=== PATIENT | male | born 1985 | race Caucasian/White ===

== ENCOUNTER 2019-03-17 17:41 | Emergency (ER) | payer SELFPAY ==
--- NOTE | 2019-03-17 17:58 | Event Note ---
ED Screening Note Date of service: 03/17/19 Time: 17:54 ED Screening Note: 33 y o male presents with No PMH to ED with gross hematuria and elevated BP This initial assessment/diagnostic orders/clinical plan/treatment(s) is/are subject to change based on patients health status, clinical progression and re- assessment by fellow clinical providers in the ED. Further treatment and workup at subsequent clinical providers discretion. Patient/guardian urged not to elope from the ED as their condition may be serious if not clinically assessed and managed. Initial orders include: HTn Emerg labs ordered IVF Clonidine
[2019-03-17 18:30] LABS: Basophils # (Auto) 0.1 K/mm3 (0.0-0.1); Eosinophils # (Auto) 0.3 K/mm3 (0.0-0.4); Eosinophils % (Auto) 3.7 % (0.0-4.3); Monocytes # (Auto) 0.6 K/mm3 (0.0-0.8)
[2019-03-17 18:42] LABS: Basophils % (Auto) 1.9 % (0.0-1.8); Hematocrit 47.8 % (35.5-45.6); Hemoglobin 16.7 gm/dl (11.8-15.2); Lymphocytes # (Auto) 1.1 K/mm3 (1.2-5.4); Lymphocytes % (Auto) 12.4 % (13.4-35.0); Mean Corpuscular HGB Conc 35 % (32-34); Mean Corpuscular Volume 87 fl (84-94); Red Cell Distribution Width 13.3 % (13.2-15.2)
[2019-03-17 18:44] LABS: Bilirubin,Urine NEG (Negative); Blood,Urine LG (Negative); Color,Urine Red (Yellow); Urobilinogen,Urine < 2.0 mg/dL (<2.0)
[2019-03-17 18:45] LABS: Platelet Count 220 K/mm3 (140-440); Red Blood Count 5.49 M/mm3 (3.65-5.03)
[2019-03-17 18:46] LABS: Mean Platelet Volume 7.7 fl (6-12)
[2019-03-17 18:52] LABS: RBC,Urine > 182.0 /HPF (0.0-6.0)
[2019-03-17 18:54] LABS: Alanine Aminotransferase 164 units/L (7-56); Albumin 4.9 g/dL (3.9-5); BUN/Creatinine Ratio 16; Blood Urea Nitrogen 11 mg/dL (9-20); Calcium 9.9 mg/dL (8.4-10.2); Hemolysis Index 7
--- NOTE | 2019-03-17 19:30 | Emergency Department Report ---
ED Male HPI - General Chief complaint: Urogenital-Male Stated complaint: URINATING BLOOD Time Seen by Provider: 03/17/19 17:54 Source: patient Mode of arrival: Ambulatory Limitations: No Limitations - History of Present Illness Initial comments: 33-year-old male, presents to ED with a past medical history of hypertension, complaining of suprapubic discomfort, gross hematuria, for the past 2 days. Symptoms are rated as moderate in severity. But he denies any fever, chills or night sweats. He has been out of his blood pressure medication due to lack of insurance and has not been able to see a doctor. - Related Data Previous Rx's Medication Instructions Recorded Last Taken Type Sulfamethoxazole/Trimethoprim 1 each PO BID #14 tablet 03/17/19 Unknown Rx [Bactrim DS TAB] amLODIPine [Norvasc] 10 mg PO DAILY 3 Days #30 tab 03/17/19 Unknown Rx Allergies Allergy/AdvReac Type Severity Reaction Status Date / Time No Known Allergies Allergy Unverified 03/17/19 17:49 ED Review of Systems ROS: Stated complaint: URINATING BLOOD Other details as noted in HPI Comment: All other systems reviewed and negative ENT: denies: ear pain Respiratory: denies: cough Cardiovascular: denies: chest pain, palpitations, dyspnea on exertion, orthopnea Gastrointestinal: denies: abdominal pain, nausea, vomiting Genitourinary: urgency, dysuria, hematuria ED Past Medical Hx - Social History Smoking Status: Current Some Day Smoker - Medications Home Medications: Home Medications Medication Instructions Recorded Confirmed Last Taken Type Sulfamethoxazole/Trimethoprim 1 each PO BID #14 tablet 03/17/19 Unknown Rx [Bactrim DS TAB] amLODIPine [Norvasc] 10 mg PO DAILY 3 Days #30 tab 03/17/19 Unknown Rx ED Physical Exam - General Limitations: No Limitations General appearance: alert, in no apparent distress - Head Head exam: Present: atraumatic, normocephalic - Eye Eye exam: Present: normal appearance, PERRL, EOMI Pupils: Present: normal accommodation - ENT ENT exam: Present: normal exam, normal orophraynx - Neck Neck exam: Present: normal inspection - Cardiovascular Cardiovascular Exam: Present: regular rate, normal rhythm - GI/Abdominal GI/Abdominal exam: Present: soft, normal bowel sounds - Extremities Exam Extremities exam: Present: normal inspection - Back Exam Back exam: Present: normal inspection - Neurological Exam Neurological exam: Present: alert, oriented X3, CN II-XII intact ED Course Vital Signs 03/17/19 03/17/19 03/17/19 17:49 19:07 19:16 Temperature 99.0 F 99.2 F Pulse Rate 80 69 80 Respiratory 18 20 20 Rate Blood Pressure 196/117 195/110 Blood Pressure 195/110 [Left] O2 Sat by Pulse 98 97 97 Oximetry 03/17/19 03/17/19 03/17/19 19:30 19:34 19:45 Temperature Pulse Rate 87 99 H Respiratory 18 16 Rate Blood Pressure 203/124 176/104 Blood Pressure [Left] O2 Sat by Pulse 96 100 Oximetry 03/17/19 03/17/19 03/17/19 19:46 20:00 20:45 Temperature Pulse Rate Respiratory Rate Blood Pressure 176/104 168/93 146/80 Blood Pressure [Left] O2 Sat by Pulse 96 98 94 Oximetry 03/17/19 03/17/19 21:00 21:15 Temperature Pulse Rate Respiratory Rate Blood Pressure 128/81 134/73 Blood Pressure [Left] O2 Sat by Pulse 95 97 Oximetry ED Medical Decision Making - Lab Data Result diagrams: 03/17/19 18:19 03/17/19 18:19 - Medical Decision Making Patient given clonidine 0.2 in ED, which helped his blood pressure, CT abdomen and pelvis did not show any gross abnormality, patient advised to follow-up with practice referral provided by ED. He is stable at discharge. Critical care attestation.: If time is entered above; I have spent that time in minutes in the direct care of this critically ill patient, excluding procedure time. ED Disposition Clinical Impression: Hematuria Qualifiers: Hematuria type: gross Qualified Code(s): R31.0 - Gross hematuria UTI (urinary tract infection) Qualifiers: Urinary tract infection type: acute cystitis Hematuria presence: with hematuria Qualified Code(s): N30.01 - Acute cystitis with hematuria Hypertension Qualifiers: Hypertension type: essential hypertension Qualified Code(s): I10 - Essential (primary) hypertension Disposition: TO HOME OR SELFCARE Is pt being admited?: No Does the pt Need Aspirin: No Condition: Stable Instructions: Urinary Tract Infection in Men (ED), Hypertension (ED) Prescriptions: Sulfamethoxazole/Trimethoprim [Bactrim DS TAB] 1 each PO BID #14 tablet amLODIPine [Norvasc] 10 mg PO DAILY 3 Days #30 tab Referrals: [facility] [Provider Group] - 3-5 Days Forms: Work/School Release Form(ED)
[2019-03-17] MEDS ORDERED: CATAPRES PO ONE (19:35)
--- NOTE | 2019-03-17 20:05 | Cat Scan Report ---
CT abdomen pelvis wo con INDICATION: RIGHT FLANK PAIN, HEMATURIA,R/O STONE. TECHNIQUE: All CT scans at this location are performed using CT dose reduction for ALARA by means of automated e xposure control. COMPARISON: None available. FINDINGS: Lung bases are clear. Diffuse hepatic steatosis, with no focal liver lesions. Gallbladder is slightly distended, with no stones or wall thickening. Spleen, pancreas, kidneys and adrenals appear negative . Pelvis Urinary bladder and distal ureters are unremarkable. (Bladder is thick walled, but this is thought to be due to incomplete distention.) Normal appendix. No free fluid or inflammatory change. No acute skeletal lesions. IMPRESSION: 1. No hydronephrosis or urinary tract calculi. Hepatic steatosis. Signer Name: Devendra Cardoza MD Signed: 03/17/2019 8:00 PM Workstation Name: [id number]
[2019-03-17 21:27] VITALS: BP 134/73
== END 2019-03-17 21:31 | disposition home or self-care (01) ==
LOC: ED 17:41
DX: N39.0 Urinary tract infection, site not specified (principal); I10 Essential (primary) hypertension; Z79.899 Other long term (current) drug therapy; F17.200 Nicotine dependence, unspecified, uncomplicated
CPT/HCPCS: 36415; 74176; 80053; 81001; 85025; 87086; 99284